=== PATIENT | female | born 1960 | race Caucasian/White ===

== ENCOUNTER 2020-04-24 23:01 | Emergency (ER) | payer MEDICAID ==
[~2020-04-24] VITALS: Ht 157.5 cm; Wt 85.3 kg
[2020-04-24 23:11] VITALS: Ht 157.5 cm; Wt 85.3 kg
[2020-04-25] VITALS: BP 146/79
== END 2020-04-25 | disposition home or self-care (01) ==
LOC: ED 23:01
DX: H61.21 Impacted cerumen, right ear (principal)